=== PATIENT | male | born 1935 | race Caucasian/White ===

== ENCOUNTER 2024-04-27 06:05 | Inpatient (IN) | payer MEDICARE, OTHER, SELFPAY ==
[2024-04-11 13:57] VITALS: BMI 28.5
[2024-04-11 14:54] LABS: ALT (SGPT) 17 U/L (0-50); AST (SGOT) 28 U/L (17-59); Albumin 4.1 g/dl (3.5-5.0); Alkaline Phosphatase 59 U/L (38-126); Blood Urea Nitrogen 11 mg/dl (9-20); Calcium 8.9 mg/dl (8.4-10.2); Carbon Dioxide 23 mmol/L (22-30); Chloride 99 mmol/L (98-107); Estimated Creatinine Clearance 57 ml/min; Glucose 91 mg/dl (70-99); Potassium 3.9 mmol/L (3.5-5.1); Sodium 132 mmol/L (135-145); Total Bilirubin 0.9 mg/dl (0.2-1.3); Total Protein 7.2 g/dl (6.3-8.2); eGFR > 60.00
[2024-04-11 15:08] LABS: Hematocrit 26.8 % (39.0-52.0); Hemoglobin 9.3 g/dL (13.0-18.0); Mean Corp Hgb Conc. 34.7 g/dL (33.0-37.0); Mean Corpuscular Hgb 37.1 pg (27.0-31.0); Mean Corpuscular Volume 106.8 fL (80.0-94.0); Mean Platelet Volume 9.3 fL (7.4-10.4); Platelet Count 229 10^3/uL (130-400); Red Blood Cell Count 2.51 10^6/uL (4.70-6.10); Red Cell Dist. Width 13.9 % (11.5-14.5); White Blood Cell Count 7.4 10^3/uL (4.8-10.8)
[2024-04-11 15:29] LABS: Glycohemoglobin (HgbA1c) 5.3 % (4.0-5.6)
[2024-04-27] VITALS (13 sets, daily range): BP systolic 118–159; BP diastolic 53–89; PULSE 89; O2SAT 100; BMI 28.5
[2024-04-27] MEDS: TYLENOL 650 MG PO ×4 (06:37→20:52)
[2024-04-27] MEDS: NORMOSOL-R/PLASMALYTE-A 1000 IV ×2 (06:37→09:44)
[2024-04-27] MEDS: CELEBREX 200 MG PO (06:37)
--- NOTE | 2024-04-27 07:42 | W.PN.UPDATE ---
Update Note
Progress Note Update
AUDRA-Cpap
TAVR-decrease IVF rate
CAD-Brilinta POD#3-5
Macrocytic Anemia-check B12,folate
--- NOTE | 2024-04-27 10:15 | PTCARENOTE ---
Pt received from the PACU via bed. Transport was w/o incident. Pt is Awake, Drowsy and easily arousable. Pt denies pain or nausea at this time. Pt's VSS, Pt is afebrile. Pulse ox is 100% on 2Lvia nc., Resp. easy. Left Hip with PrimaSeal dressing
C/D/I, no drainage noted. Ice pack applied as ordered. Pt is Able to wiggle toes of left foot and reports full sensation foot to thigh. Pulses to left leg/foot are strong. Pt instructed on Plan of care. Pt verbalized understanding of instructions,
call [facility] is within reach.
[2024-04-27] MEDS: SYNTHROID PO (12:45)
[2024-04-27 14:10] LABS: Folate 10.4 ng/ml (2.76-20); Vitamin B12 378 pg/ml (239-931)
[2024-04-27 14:55] LABS: Iron 85 ug/dl (49-181)
[2024-04-27 15:04] LABS: Percent Saturation 33 % (20-50); Total Iron Binding Capacity 253 ug/dl (261-462)
--- NOTE | 2024-04-27 15:48 | W.DS.TRANS ---
DC Summary - [employer]
-
Discharge Instructions:
Discharge Diagnosis/Procedures L GRIFFIN Wild 04/27/24
Diet As tolerated
Activity With Walker
Driving Restrictions No driving
Bathing Restrictions OK to Shower
Other Services PT,VN,OT
Instructions:
Stand-Alone Forms: Total Hip/Knee Replacement D/C
Changes to Home Medications: Yes
Discharge Medications:
DC Medications w/original date entered in [employer]
ezetimibe 10 mg-simvastatin 40 mg tablet (Vytorin) 1 tab PO HS 04/15/24
levothyroxine 50 mcg tablet (Synthroid) 50 mcg PO DAILY 04/15/24
losartan 50 mg tablet (Cozaar) 50 mg PO DAILY 04/15/24
mupirocin 2 % ointment topical kit 1 applic topical BID 04/15/24
ticagrelor 60 mg tablet (Brilinta) 60 mg PO BID 04/15/24
acetaminophen 325 mg capsule (Tylenol) 650 mg (2 x 325 mg) PO QID #2 caps 04/27/24
aspirin 81 mg capsule 81 mg PO BID Blood clot prevention/tx #0 caps 04/27/24
dexamethasone 4 mg tablet 4 mg PO BID inflammation #6 tabs 04/27/24
docusate sodium 100 mg capsule (Colace) 100 mg PO BID stool softner #1 cap 04/27/24
famotidine 20 mg tablet 20 mg PO HS GI prophylaxis #1 tab 04/27/24
magnesium hydroxide 400 mg/5 mL oral suspension (Milk of Magnesia) 30 ml PO HS PRN Constipation #1 mL 04/27/24
ondansetron 4 mg disintegrating tablet 4 mg PO Q6H PRN n/v #20 tabs 04/27/24
oxycodone 5 mg tablet 5 mg PO Q6H PRN moderate-severe pain #30 tabs 04/27/24
sennosides 8.6 mg tablet (Senokot) 17.2 mg (2 x 8.6 mg) PO BID laxative #2 tabs 04/27/24
Home Medication Changes
ticagrelor 60 mg tablet (Brilinta) 60 mg PO BID 04/15/24�
aspirin 81 mg capsule 81 mg PO BID Blood clot prevention/tx #0 caps 04/27/24�
dexamethasone 4 mg tablet 4 mg PO BID inflammation #6 tabs 04/27/24�
famotidine 20 mg tablet 20 mg PO HS GI prophylaxis #1 tab 04/27/24�
ondansetron 4 mg disintegrating tablet 4 mg PO Q6H PRN n/v #20 tabs 04/27/24�
oxycodone 5 mg tablet 5 mg PO Q6H PRN moderate-severe pain #30 tabs 04/27/24�
Pending Results: No
[2024-04-27] MEDS: ANCEF 5 IV (16:24)
[2024-04-27] MEDS: ROXICODONE 5 MG PO (16:26)
[2024-04-27] MEDS: ASPIRIN 325 MG PO (18:32)
[2024-04-27] MEDS: BACTROBAN 2% OINTMENT 1 APPLIC NASAL (20:55)
[2024-04-27] MEDS: DECADRON 4 MG PO (20:55)
[2024-04-27] MEDS: COLACE 100 MG PO (20:55)
[2024-04-27] MEDS: SENOKOT 17.2 MG PO (20:55)
[2024-04-27] MEDS: TORADOL 15 MG IV (20:58)
[2024-04-27] MEDS: LIPITOR 20 MG PO (21:35)
[2024-04-27] MEDS: NEURONTIN 200 MG PO (21:35)
[2024-04-27] MEDS: ZETIA 10 MG PO (21:35)
[2024-04-28] MEDS: TYLENOL 650 MG PO ×4 (00:43→12:04)
[2024-04-28] MEDS: ANCEF 5 IV (00:44)
[2024-04-28 02:10] VITALS: PULSE 86
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
[2024-04-28 03:05] VITALS: BP 130/63
[2024-04-28] MEDS: SYNTHROID 50 MCG PO (05:12)
[2024-04-28] MEDS: TUMS 2 TABLET PO (05:12)
[2024-04-28 07:34] VITALS: BP 140/83
[2024-04-28] MEDS: SENOKOT 17.2 MG PO (08:37)
[2024-04-28] MEDS: DECADRON 4 MG PO (08:37)
[2024-04-28] MEDS: TORADOL 15 MG IV (08:37)
[2024-04-28] MEDS: CELEBREX 200 MG PO (08:37)
[2024-04-28] MEDS: BACTROBAN 2% OINTMENT 1 APPLIC NASAL (08:38)
[2024-04-28] MEDS: ASPIRIN 325 MG PO (08:38)
[2024-04-28] MEDS: COLACE 100 MG PO (08:38)
--- NOTE | 2024-04-28 10:30 | CM ---
CM following re: discharge planing.
Reviewed pt's chart, met with pt. Pt's spouse and daughter at bedside.
Pt is an 88 year old male, admitted with primary dx of POD#1 s/p Left total hip arthroplasty.
Pt reports he lives with spouse 1SH, no steps to enter, has 2 supportive children. Pt reports he ambulates with a walker and a cane, is active with outpatient therapy provided by therapist Agustín Chaves [phone]. Pt expressed his desire to return
back home with resumptions of outpatient therapy with Agustín Chaves. Pt stated he is aware he will be discharged home and pt expressed his agreement. IMM reviewed, placed on chart, pt has a copy.
PCP: Nando Villarreal
Pharmacy: [facility]
Please provide a script for outpatient PT/OT.
D/C plan: return back home with outpatient therapy with therapist Agustín Chaves. Spouse to transport.
No other discharge needs identified.
[2024-04-28 10:58] VITALS: BP 130/52
[2024-04-28 11:03] VITALS: BP 130/52; PULSE 74
[2024-04-28 12:09] VITALS: BP 130/57; PULSE 78; O2SAT 97
--- NOTE | 2024-04-28 13:27 | W.PN.ORTHO ---
Today's Communication / Plan
-
d/c
Assessment
.
Distal Motor Intact: Yes
Dressing:
Clean, dry and intact.
Assessment:
AUDRA-Cpap-O2 sats stable on RA
TAVR-decrease IVF rate-volume status stable
CAD-Brilinta POD#5--stents >1year
Macrocytic Anemia-B12,folate in range
Plan
.
Surgery / Date: Paulina Wild 04/27/24
DVT Prophylaxis: Aspirin
Activity:
Out of bed.
PT/OT
Discharge Plan: Home w/ VN
Subjective
.
.:
Patient resting comfortably.
Vital Signs and Labs
.
Vital Signs and Labs:
Lab Results
04/11/24 12:48
04/11/24 12:48
Temp Pulse Resp BP Pulse Ox
97.4 F 83 16 130/52 99
04/28/24 10:58 04/28/24 10:58 04/28/24 10:58 04/28/24 10:58 04/28/24 10:58
Non-invasive Hgb result: 9.5
Physical Exam
-
HEENT: No pallor, cyanosis, or jaundice. Throat clear.
NECK: Supple. No JVD.
RESPIRATORY: Lungs clear to auscultation.
CVS: S1, S2 normal. RRR.� No murmur, rub or gallop.
ABDOMEN: Soft, non-tender. No distension. BS+/normal.
EXTREMITIES: strength equal, no calf pain with palpation
DISTRICT RECRUITER: AOx3. No focal deficits. slat basket maker machine grossly intact
== END 2024-04-28 14:13 | disposition home health service (06) | DRG 470 ==
LOC: 2 SOUTH 06:05
PROVIDERS: Physician Assistant Medical; ADMITTING PHYSICIAN Orthopaedic Surgery; FAMILY PHYSICIAN Student in an Organized Health Care Education/Training Program
PROC: 0SRB03A Replacement of Left Hip Joint with Ceramic Synthetic Substitute, Uncemented, Open Approach (ICD-10-PCS; 2024-04-27)
DX: M16.12 Unilateral primary osteoarthritis, left hip (principal); G47.33 Obstructive sleep apnea (adult) (pediatric); I25.10 Atherosclerotic heart disease of native coronary artery without angina pectoris; D53.9 Nutritional anemia, unspecified; E78.5 Hyperlipidemia, unspecified; I10 Essential (primary) hypertension; Z96.642 Presence of left artificial hip joint; Z79.82 Long term (current) use of aspirin; Z79.890 Hormone replacement therapy; Z95.2 Presence of prosthetic heart valve; Z95.5 Presence of coronary angioplasty implant and graft
CPT/HCPCS: 36415; 73502; 80053; 82607; 82728; 82746; 83036; 83540; 83550; 85027; 86850; 86900; 86901; 87070; 97110; 97116; 97163; 97166; 97530; 97535; C1713; C1776

== ENCOUNTER 2024-05-14 23:57 | Inpatient (IN) | payer MEDICARE, SELFPAY ==
[2024-05-14] VITALS (7 sets, daily range): BP systolic 111–144; BP diastolic 44–75
[2024-05-14] MEDS: TYLENOL 650 MG PO (20:37)
--- NOTE | 2024-05-14 21:21 | ED.GENMED ---
History of Present Illness
General
Chief Complaint: Musculo-Skeletal Complaint
Source: patient, spouse and family
Exam Limitations: none
Time Seen by Provider: 05/14/24 19:51
Nursing documentation reviewed up to this point in time: agreed with
History of Present Illness
History of Present Illness:
88-year-old male presents emergency department due to left leg pain. He was sitting in the recliner and elevated his lower legs and the pain began radiating down his left leg from his hip. Complaint of left knee pain. notes swelling and
redness in his left leg.
Past History
Past History
ED Past Medical History: HTN, Hypercholesterolemia and Other (Sleep apnea)
ED Past Surgical History: Orthopedic (Left hip replacement call April 2024)
Social History
Tobacco: Non-smoker
Alcohol: None
Drug: None
Personal:
Living: with family
Review of Systems
Review of Systems
Allergies reviewed?: Yes
All Other Systems: Not applicable
Constitutional: Reports no symptoms
EENT: Reports no symptoms
Respiratory: Reports no symptoms
Cardiac: Reports no symptoms
ABD/GI: Reports no symptoms
: Reports no symptoms
Musculoskeletal: Reports joint pain and muscle pain
Skin: Reports no symptoms
Neurological: Reports no symptoms
Endocrine: Reports no symptoms
Hematologic/Lymphatic: Reports no symptoms
Psychiatric: Reports no symptoms
Phy Exam
Physical Exam
Physical Exam:
Physical Exam
General: no apparent distress, not acutely ill
Neck: supple. no meningeal signs. normal posterior pharynx
Heart: s1/s2 regular rate and rhythm, no murmur. equal radial
pulses.
HEENT: Pupils equal round reactive to light, EOMI
Lungs: no acute respiratory distress. clear bilaterally
Abdomen: normal bowel sounds. not tender. no CVAT
Neuro: alert and oriented. no focal neurological deficits cranial nerves II through XII intact
Skin: Healing left lateral hip incision, erythema and edema left lower leg
Psychiatric: well kept. interactive and cooperative
Extremities: Edema left lower leg. No calf tenderness. negative homans. good distal pulses
Course
Orders/Labs/Results
Orders:
Orders
05/14/24 19:26
Hip, Left 2-3 Views [CR Hip - LT w/wo Pel 2-3 Vw*] Urgent
Comment:
Reason For Exam: pain s/p GRIFFIN
Include a pelvis x-ray?: Yes
05/14/24 20:35
Acetaminophen [Tylenol] 650 mg PO NOW STA
05/14/24 21:19
IV Insert/Care/Rem.- Treatment PRN
Legs, left US [US Periph Venous LOWER Ext LT] Urgent
Comment:
Reason For Exam: left leg swelling
05/14/24 22:08
CRP [C-Reactive Protein] Urgent
Complete Blood Count/With Diff Urgent
Comprehensive Metabolic Panel Urgent
ESR [Erythrocyte Sed Rate] Urgent
05/14/24 22:24
Morphine Sulfate 2 mg IV NOW STA
Ondansetron Injectable [Zofran] 4 mg IV NOW STA
05/14/24 23:09
CeFAZolin 2 GRAM [Ancef] 2 grams in 10 ml IV NOW
Abnormal Lab Results
05/14/24
22:08
RBC 1.94 L 10^6/uL
(4.70-6.10)
Hgb 7.3 L g/dL
(13.0-18.0)
Hct 20.8 L* %
(39.0-52.0)
MCV 107.2 H fL
(80.0-94.0)
MCH 37.6 H pg
(27.0-31.0)
RDW 14.6 H %
(11.5-14.5)
Abs Immat Gran (auto) 0.1 H 10^3/uL
(0-0.05)
Absolute Neuts (auto) 7.4 H 10^3/uL
(1.4-6.5)
Absolute Monos (auto) 1.0 H 10^3/uL
(0.1-0.6)
Immature Gran % 0.6 H %
(0-0.5)
Lymphocytes % 18.0 L %
(20.5-51.1)
Monocytes % 9.5 H %
(1.7-9.3)
ESR 96 H mm/hour
(0-20)
Sodium 129 L mmol/L
(135-145)
Chloride 95 L mmol/L
(98-107)
Glucose 105 H mg/dl
(70-99)
C-Reactive Protein 21.50 H mg/L
(0.0-10.00)
Total Protein 6.2 L g/dl
(6.3-8.2)
Albumin 3.4 L g/dl
(3.5-5.0)
05/14/24 22:08
05/14/24 22:08
Vital Signs
Initial and Last Documented VS:
Initial Vital Signs
BP
140/71
05/14/24 19:10
Last Documented Vital Signs
Temp Pulse Resp BP Pulse Ox
97.7 F 105 18 120/50 94
05/14/24 19:12 05/14/24 19:12 05/14/24 19:12 05/14/24 22:49 05/14/24 22:49
MDM/Problems Addressed
Differential Diagnosis Includes:
Cellulitis, DVT
MDM/Problems Addressed:
88-year-old male with cellulitis, left lower leg, left leg pain, acute on chronic anemia.,
Chronic conditions affecting care: HTN and Cardiomyopathy
Acute Exacerbation and/or Progression of Chronic Illness: HTN and Cardiomyopathy
*Radiology
Radiology exam reviewed: radiology read reviewed (Ultrasound left lower leg no DVT, left hip x-ray no acute findings)
*Pulse Oximetry
Patient hypoxic: no
*Critical Care Note
Total Time (30-74mins, 75-104mins- exclusive of procedures): Not Applicable
Data Reviewed
Review of Other/Old Records Reveals: Operative Reports (Left hip replacement by Dr. Wild 04/27/2024)
Source: records
Patient Management
Social determinants of health affecting care: Living situation and Strong social support
Discussion with other providers: Hospitalist
Escalation/DeEscalation of care consider admission/obs:
Admit indicated
ED Attending Note
-
Portions of this chart may have been created with voice recognition software.� Occasional wrong word or��sound alike� substitutions may have occurred due to the inherent limitations of voice recognition software.
Discharge Plan
Departure
Patient Disposition: Admit
Date of Disposition: 05/14/24
Time of Disposition: 23:10
Admit to: Med/Surg
Presentation/result/management discussed w/ accepting MD/DO: Hospitalist
Patient with high blood pressure during this ER visit?: Yes
Condition: Good
Discharge Problem:
Cellulitis of left leg, Anemia
Prescriptions:
No Action
losartan [Cozaar] 50 mg Tablet
50 mg PO DAILY
levothyroxine [Synthroid] 50 mcg Tablet
50 mcg PO DAILY
ezetimibe-simvastatin [Vytorin 10-40] 10-40 mg Tablet
1 tab PO HS
Brilinta 60 mg Tablet
60 mg PO BID
mupirocin 2 % Ointment Kit
1 applic TOPICAL BID
Rx Instructions:
BID for 3 days, last dose this am
docusate sodium [Colace] 100 mg capsule
100 mg PO BID Qty: 1 0RF
famotidine 20 mg tablet
20 mg PO HS Qty: 1 0RF
Rx Instructions:
post-op--OTC
dexamethasone 4 mg tablet
4 mg PO BID Qty: 6 0RF
Rx Instructions:
take with food
post-op use only
magnesium hydroxide [Milk of Magnesia] 400 mg/5 mL suspension
30 ml PO HS PRN (Reason: Constipation) Qty: 1 0RF
ondansetron [ondansetron] 4 mg tablet,disintegrating
4 mg PO Q6H PRN (Reason: n/v) Qty: 20 0RF
Rx Instructions:
take 1/2h b/f pain med if recurrent nausea
allow to dissolve in mouth w/o water
oxycodone 5 mg tablet
5 mg PO Q6H PRN (Reason: moderate-severe pain) Qty: 30 0RF
Rx Instructions:
Ongoing therapy
sennosides [Senokot] 8.6 mg tablet
17.2 mg PO BID Qty: 2 0RF
acetaminophen [Tylenol] 325 mg capsule
650 mg PO QID Qty: 2 0RF
aspirin 81 mg Capsule
81 mg PO BID Qty: 0 0RF
Referrals:
Nando Villarreal III, MD [Family Provider] -
Interventions
Interventions:
*Risk Screen - Suicide Last Done: 05/14/24 19:19
*General Assessment Last Done: 05/14/24 19:19
*Neglect/Abuse Screening Last Done: 05/14/24 19:19
ED- Fall Risk Assessment Last Done: 05/14/24 20:27
*ED COVID-19 Vaccine History Last Done: 05/14/24 20:27
ED-Musculoskeletal Assessment Last Done: 05/14/24 20:27
Discharge Date and Time
Print Language: ROMANIAN
[2024-05-14 22:27] LABS: % Basophils 0.2 % (0-2); % Eosinophils 0.2 % (0-6); % Immature Granulocytes 0.6 % (0-0.5); % Monocytes 9.5 % (1.7-9.3); % Neutrophils 71.5 % (42.2-75.2); Absolute Immature Granulocytes 0.1 10^3/uL (0-0.05); Absolute Lymphocytes 1.9 10^3/uL (1.2-3.4); Absolute Neutrophils 7.4 10^3/uL (1.4-6.5); Hematocrit 20.8 % (39.0-52.0); Hemoglobin 7.3 g/dL (13.0-18.0); Mean Corp Hgb Conc. 35.1 g/dL (33.0-37.0); Mean Corpuscular Hgb 37.6 pg (27.0-31.0); Mean Corpuscular Volume 107.2 fL (80.0-94.0); Mean Platelet Volume 9.8 fL (7.4-10.4); Nucleated Red Blood Cells % 0.4 % (-); Platelet Count 287 10^3/uL (130-400); Red Blood Cell Count 1.94 10^6/uL (4.70-6.10); Red Cell Dist. Width 14.6 % (11.5-14.5); White Blood Cell Count 10.3 10^3/uL (4.8-10.8)
[2024-05-14 22:35] LABS: ALT (SGPT) 21 U/L (0-50); AST (SGOT) 25 U/L (17-59); Albumin 3.4 g/dl (3.5-5.0); Alkaline Phosphatase 95 U/L (38-126); Blood Urea Nitrogen 12 mg/dl (9-20); Calcium 8.6 mg/dl (8.4-10.2); Carbon Dioxide 25 mmol/L (22-30); Chloride 95 mmol/L (98-107); Glucose 105 mg/dl (70-99); Potassium 4.4 mmol/L (3.5-5.1); Sodium 129 mmol/L (135-145); Total Bilirubin 0.8 mg/dl (0.2-1.3); Total Protein 6.2 g/dl (6.3-8.2); eGFR > 60.00
[2024-05-14 22:37] LABS: Erythrocyte Sed Rate 96 mm/hour (0-20)
[2024-05-14] MEDS: ZOFRAN 4 MG IV (22:39)
[2024-05-14] MEDS: MORPHINE SULFATE 2 MG IV (22:39)
[2024-05-14] MEDS: ANCEF 10 IV (23:17)
--- NOTE | 2024-05-14 23:45 | HPS.HSE ---
Family Physician
-
Family Physician: Nando Villarreal III, MD
Chief Complaint
-
L Knee / Hip Pain
History of Present Illness
Patient is an 88y M with PMH significant for ASCVD, hypertension and AV replacement who presents to ED complaining of left knee and hip pain that started this evening. Patient is s/p recent L GRIFFIN on 04/27/24. He has been receiving home PT and has
been doing well since his surgery with no recent issues or complaints. This evening after dinner, patient went to sit in his recliner. He elevated the foot of the recliner and developed rather sudden onset of pain in the back of the L knee with
radiation to the L hip and groin. He was unable to to get comfortable with ice packs or position changes. His pain was least bothersome with standing / weight bearing. With persistent pain at home patient presented to the ED for further
evaluation.
He denies any recent illness. He denies any chest pain, dyspnea, N/V/D, fevers / chills, etc.
Medical History
Past Medical History
Past Medical History: Reports Other
Additional Past Medical History:
ASCVD
Hypertension
Aortic Stenosis
Hypothyroidism
Aortic Dissection
AUDRA
Osteoarthritis
Chronic Macrocytic Anemia
Hyponatremia
Past Surgical History: Reports Other
Additional Past Surgical History:
L GRIFFIN (04/27/24)
CABG x 3
Aorta Repair
AV Replacement
Bilateral TKA
Right GRIFFIN
PTCA with Stents (x 2)
Social History
Tobacco: Non-smoker
Alcohol: None
Drug: None
Family History
Family History: Not pertinent
Allergies / Home Medications
Allergies reflects when Allergies were last updated in [facility].
Home Medications with original date entered in [facility]
Allergy/Medication List:
Allergies
Allergy/AdvReac Type Severity Reaction Status Date / Time
No Known Allergies Allergy Verified 05/14/24 19:10
Home Medications
ezetimibe 10 mg-simvastatin 40 mg tablet (Vytorin) 1 tab PO HS 04/15/24
levothyroxine 50 mcg tablet (Synthroid) 50 mcg PO DAILY 04/15/24
losartan 50 mg tablet (Cozaar) 50 mg PO DAILY 04/15/24
ticagrelor 60 mg tablet (Brilinta) 60 mg PO BID 04/15/24
aspirin 81 mg capsule 81 mg PO BID Blood clot prevention/tx #0 caps 04/27/24
docusate sodium 100 mg capsule (Colace) 100 mg PO BID stool softner #1 cap 04/27/24
famotidine 20 mg tablet 20 mg PO HS GI prophylaxis #1 tab 04/27/24
magnesium hydroxide 400 mg/5 mL oral suspension (Milk of Magnesia) 30 ml PO HS PRN Constipation #1 mL 04/27/24
ondansetron 4 mg disintegrating tablet 4 mg PO Q6H PRN n/v #20 tabs 04/27/24
oxycodone 5 mg tablet 5 mg PO Q6H PRN moderate-severe pain #30 tabs 04/27/24
sennosides 8.6 mg tablet (Senokot) 17.2 mg (2 x 8.6 mg) PO BID laxative #2 tabs 04/27/24
Review of Systems
-
History Source: Patient
A 12 point ROS was completed and negative except as noted: Yes
Constitutional: Denies Fever, Fatigue or Chills
EENT: Denies Sore Throat
Respiratory: Denies Cough or Trouble Breathing
Cardiac: Denies Chest Pain or Palpitations
Abdomen/GI: Denies Abdominal Pain, Nausea, Vomiting, Diarrhea, Constipated, Bloody Stools or Black Stools
: Denies Dysuria or Frequency
Musculoskeletal: Reports Joint Pain and Edema
Neurological: Denies Dizzy or Headache
Psych: Denies Depression or Anxiety
Physical Exam
Vital Signs
Vital Signs
Temp Pulse Resp BP Pulse Ox
97.7 F 105 18 120/50 94
05/14/24 19:12 05/14/24 19:12 05/14/24 19:12 05/14/24 22:49 05/14/24 22:49
Physical Exam
General: Other (88y M in no acute distress.)
HEENT: Moist mucous membranes and PERRLA
Respiratory: Clear; No Wheezes, Rales or Rhonchi
Cardiac: S1/S2, Regular Rhythm and Murmur (II/ ALEX)
GI: Soft, Non Tender, Non Distended and Normal Bowel Sounds
Musculoskeletal: No Clubbing, No Cyanosis and Other (1-2+ pitting edema of the LLE. Ecchymosis around L hip incision / buttocks. Incision intact without bleeding / drainage. No fluctuance or surrounding erythema.)
Skin: Other (Mild erythema and increased warmth of the L lower leg (knee to ankle) with out skin breakdown / ulceration / etc.)
Neuro: AO x 3
Laboratory Results
-
05/14/24 22:08
05/14/24 22:08
Laboratory Results
Total Bilirubin 0.8 mg/dl (0.2-1.3) 05/14/24 22:08
AST 25 U/L (17-59) 05/14/24 22:08
ALT 21 U/L (0-50) 05/14/24 22:08
Alkaline Phosphatase 95 U/L (38-126) 05/14/24 22:08
Impression/Plan
-
A/P: Patient is an 88y M with PMH significant for ASCVD, HTN and recent L GRIFFIN who presents to ED complaining of L knee and hip pain.
Left Knee / Hip Pain
s/p L GRIFFIN 04/27/24
- Admit for further evaluation and treatment.
- Etiology of abrupt pain syndrome is unclear at present.
- X-rays in the ED show no abnormality with recent L GRIFFIN prosthesis.
- No injury, fall, trauma, etc.
- Check knee x-rays as well.
- Pain control, PT / OT evaluations.
- Ortho evaluation for additional recommendations.
LLE Cellulitis
- Mild erythema, increased warmth, etc in L lower leg.
- IV Ancef for now and follow for clinical improvement.
- ? correlation between lower leg cellulitis and knee / hip pain syndrome?
Acute Blood Loss Anemia
Chronic Macrocytic Anemia
- Hgb today is 7.3 down from 9.3 pre-op.
- Suspect this reflects blood loss related to surgery.
- No specific symptoms, hypoxemia, etc.
- Follow H&H for any changes.
- Iron studies, B12, folate, etc done during surgical admission were unremarkable.
Hyponatremia
- Acute on Chronic / mildly decreased from prior.
- Fluid restriction for now and follow for improvement.
ASCVD
Aortic Stenosis s/p AVR
- Stable. No chest pain, dyspnea, etc.
- Continue current CV med regimen including DAPT, etc.
Hypothyroidism
- Stable. Continue current T4 supplementation.
Benign Hypertension
- Stable. Continue losartan with holding parameters.
DVT Prophylaxis: SCDs
Code Status: Full
[2024-05-15] VITALS (8 sets, daily range): BP systolic 114–137; BP diastolic 48–74; PULSE 79–84; O2SAT 96; BMI 27.6
[2024-05-15] MEDS: SYNTHROID 50 MCG PO (05:23)
[2024-05-15 09:42] LABS: Hematocrit 20.2 % (39.0-52.0); Hemoglobin 6.9 g/dL (13.0-18.0); Mean Corp Hgb Conc. 34.2 g/dL (33.0-37.0); Mean Corpuscular Hgb 36.3 pg (27.0-31.0); Mean Corpuscular Volume 106.3 fL (80.0-94.0); Mean Platelet Volume 9.8 fL (7.4-10.4); Platelet Count 249 10^3/uL (130-400); White Blood Cell Count 5.5 10^3/uL (4.8-10.8)
--- NOTE | 2024-05-15 09:51 | W.PN.HOSP.TC ---
Addendum entered and electronically signed by Nilay Brooke MD 05/15/24 17:01:
Addendum
Spoke with daughter Sylvia at [phone]
She was concerned about stopping AB for presumed cellulitis. Upon my exam : with lack of systemic manifestations/ leukocytosis/ redness/ tenderness of extremity, I do not think pt has cellulitis. I will restart his Ancef and do blood culture (
blood culture was not done upon admission). Can stop Abx if blood culture is negative.
Also I think the swelling will go down with Alexsander wrap and elevation. Will place the order.
End
Original Note:
Today's Communication/Plan
-
IV Iron
Tylenol PRN
f/w ortho recommendations
Assessment / Plan
Assessment / Plan
Physical Exam
General: Other (88y M in no acute distress.)
HEENT: Moist mucous membranes and PERRLA
Respiratory: Clear; No Wheezes, Rales or Rhonchi
Cardiac: S1/S2, Regular Rhythm and Murmur (II/ ALEX)
GI: Soft, Non Tender, Non Distended and Normal Bowel Sounds
Musculoskeletal: No Clubbing, No Cyanosis and Other (1-2+ pitting edema of the LLE. Ecchymosis around L hip incision / buttocks. Incision intact without bleeding / drainage. No fluctuance or surrounding erythema.)
Skin: edema note din LLE
Neuro: AO x 3, he followed commands
Psych: calm
Patient is an 88y M with PMH significant for ASCVD, HTN and recent L GRIFFIN who presents to ED complaining of L knee and hip pain.
Left Knee
He described it as pain behind left knee, he does not have pain this morning
Swelling in whole left lower extremity but expected post his replacement. Continue to elevate the leg, can do compression dressing.
US no DVT
- Ortho evaluation for additional recommendations.
# Status post Left total hip arthroplasty by Dr Wild on 04/27/24.
# Acute blood loss anemia
Post hip replacement
Chronic Macrocytic Anemia
Will give IV Iron. Hemodynamically stable.
# Presumed LLE Cellulitis. No leukocytosis. No fevers
- On admission, Mild erythema noted. I do not see signs of cellulitis. Will hold further ABx.
Hyponatremia
- Acute on Chronic / mildly decreased from prior.
- Fluid restriction for now and follow for improvement.
ASCVD
Aortic Stenosis s/p AVR
- Stable. No chest pain, dyspnea, etc.
- Continue current CV med regimen including DAPT, etc.
Hypothyroidism
- Stable. Continue current T4 supplementation.
Benign Hypertension
- Stable. Continue losartan with holding parameters.
DVT Prophylaxis: SCDs
Code Status: Full
Total time spent to see the patient, examine the patient on the floor, review data and lab results, discuss treatment plan with patient, nursing staff around 55 minutes
Anticipated Discharge: 24 - 48 hours
Subjective/Interval History
-
Date of Service: May 15, 2024
He denies pain in left knee this morning
Objective Data
-
Labs:
Laboratory Results
05/14/24 05/15/24
22:08 07:46
WBC 10.3 5.5
Hgb 7.3 L 6.9 L*
Hct 20.8 L* 20.2 L*
Plt Count 287 249
Sodium 129 L Pending
Potassium 4.4 Pending
Chloride 95 L Pending
Carbon Dioxide 25 Pending
BUN 12 Pending
Creatinine 0.7 Pending
Glucose 105 H Pending
Calcium 8.6 Pending
Total Bilirubin 0.8
AST 25
ALT 21
Alkaline Phosphatase 95
Vital Signs:
Vital Signs
Temp Pulse Resp BP Pulse Ox
97.5 F 71 16 114/54 95
05/15/24 07:30 05/15/24 07:30 05/15/24 07:30 05/15/24 07:30 05/15/24 07:30
[2024-05-15] MEDS: COZAAR 50 MG PO (10:09)
[2024-05-15] MEDS: ASPIR LOW (ENTERIC COATED) 81 MG PO (10:09)
[2024-05-15] MEDS: BRILINTA 60 MG PO ×2 (10:12→20:45)
[2024-05-15] MEDS: ANCEF 10 IV (10:13)
[2024-05-15 10:24] LABS: Blood Urea Nitrogen 9 mg/dl (9-20); Calcium 8.5 mg/dl (8.4-10.2); Carbon Dioxide 20 mmol/L (22-30); Chloride 99 mmol/L (98-107); Estimated Creatinine Clearance 62 ml/min; Glucose 96 mg/dl (70-99); Potassium 4.4 mmol/L (3.5-5.1); Sodium 131 mmol/L (135-145); eGFR > 60.00
--- NOTE | 2024-05-15 11:12 | W.PN.UPDATE ---
Update Note
Progress Note Update
88-year-old male who is status post left total hip arthroplasty with Dr. Wild for April 2024 admitted due to sudden discomfort in his left lower extremity when going to a seated position. He reports he was doing well postoperatively
otherwise. He does report remote left total knee arthroplasty more than 10 years ago with another surgical group. Denies any chronic pain about his left knee
He denies any traumatic injury or fall. Denies any fevers or chills
Focused examination of the left lower extremity shows well-approximated surgical incision with dry eschar overlying the lateral hip. He is nontender in this area. No tenderness with hip logroll or gentle internal/external rotation. Examination of
the left knee shows localized discomfort to the superior lateral aspect with mild tenderness about the distal IT band. No significant effusion. Demonstrates intact complete extension of the left knee in flexion towards 95 degrees without
significant discomfort. Stable to varus and valgus stress testing. There is peripheral edema with redness of his skin
Imaging: X-rays taken of the left hip were compared to immediate postoperative films show no significant interval changes, no evidence of acute osseous abnormalities or hardware complication
X-rays taken of the left knee show status post left total knee arthroplasty with patellar resurfacing
Most recent blood work shows downtrending hemoglobin down to 6.9
Inflammatory marker of CRP at 21
88-year-old male admitted postoperative recent left total hip arthroplasty with sudden onset of pain in the lateral aspect of his left knee when going from a standing to a seated position without traumatic injury with unremarkable imaging and
minimal findings on clinical examination.
Clinical impression at this time is most likely soft tissue potentially about the distal IT band; atypical for injury about the left knee without traumatic injury.
Inflammatory marker of CRP at 21 with possible mild effusion however clinical examination of the left knee is benign
Recommend trial of physical therapy of ambulation with adhering to posterior hip precautions. Will obtain a CT of the left knee to ensure no hardware or osseous complication however not chiefly suspected. With trial of physical therapy we will
track his clinical progression and if still admitted track his inflammatory markers 48-72 hours. If he has more definitive localized area of discomfort can consider further advanced imaging and pending response towards return to activity with
therapy.
[2024-05-15] MEDS: FERRLECIT 110 MG IV (14:47)
--- NOTE | 2024-05-15 16:24 | CM ---
met with patient and josiah saleem.patient lives with his in house with 2 fredo,his bed and bath is on the first level,he is I ambulating and i with his adl.he has never had a vn and has no hx of ip rehab
patient is current with [facility] pt 2x/week
PCP:[facility]: [facility] in [place]
PMH:sp sujit on 04/27/24,htn,aortic stenosis sp avr,chronic macrocytic anemia
patient is adm with left knee and hip pain-possible lle cellulitis,was on iv abx for few doses-now holding iv abx,on iv iron,following sodium level..Plan will dc with home pt 2x/week as prior [facility] adm.not able to fine this agency in [facility].they ar
in [facility] [phone].apparently ortho doctor has already written a script for additional pt.Plan home wiith home pt through [facility] agency.
[2024-05-15] MEDS: ANCEF 5 IV (17:42)
[2024-05-15] MEDS: LIPITOR 10 MG PO (21:37)
[2024-05-15] MEDS: ZETIA 10 MG PO (21:37)
[2024-05-16] MEDS: ANCEF 5 IV ×3 (02:21→18:23)
[2024-05-16] MEDS: SYNTHROID 50 MCG PO (06:09)
[2024-05-16 06:26] LABS: Blood Urea Nitrogen 11 mg/dl (9-20); Calcium 8.9 mg/dl (8.4-10.2); Carbon Dioxide 22 mmol/L (22-30); Chloride 99 mmol/L (98-107); Estimated Creatinine Clearance 62 ml/min; Glucose 98 mg/dl (70-99); Potassium 4.3 mmol/L (3.5-5.1); Sodium 133 mmol/L (135-145); eGFR > 60.00
[2024-05-16 06:28] LABS: Hematocrit 20.1 % (39.0-52.0); Hemoglobin 6.8 g/dL (13.0-18.0); Mean Corp Hgb Conc. 33.8 g/dL (33.0-37.0); Mean Corpuscular Hgb 35.8 pg (27.0-31.0); Mean Corpuscular Volume 105.8 fL (80.0-94.0); Mean Platelet Volume 9.5 fL (7.4-10.4); Platelet Count 259 10^3/uL (130-400); Red Cell Dist. Width 15.1 % (11.5-14.5); White Blood Cell Count 6.4 10^3/uL (4.8-10.8)
[2024-05-16 07:51] VITALS: BP 126/58
[2024-05-16] MEDS: ASPIR LOW (ENTERIC COATED) 81 MG PO (08:10)
[2024-05-16] MEDS: COZAAR 50 MG PO (08:10)
[2024-05-16] MEDS: BRILINTA 60 MG PO ×2 (08:10→20:57)
--- NOTE | 2024-05-16 09:31 | W.PN.UPDATE ---
Update Note
Progress Note Update
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 Hgb this morning at 6.8. Told they will be transfusing him. A little fatigued this morning. Will hold PT until after
transfusion. Exam of the left hip and left knee essentially benign other than some mild swelling of the left knee. Alexsander wrap compression in place LLE. CT of the LLE reveals left TKA to be without complication. Afeb this AM. WBC 6.4 this AM. ESR on
May 17 was 96. CRP 21.5 on May 17. Will continue to monitor while inpatient. Concern for left knee PJI at this time extremely low. Continue to be mindful of left hip THPs.
[2024-05-16 12:55] VITALS: BP 139/60
[2024-05-16 13:11] VITALS: BP 122/59
--- NOTE | 2024-05-16 14:12 | W.PN.HOSP.TC ---
Today's Communication/Plan
-
f/u anemia labs
transfuse 1 u prbc today, monitor cbc
f/u tsh
can cont cefazolin for now
Assessment / Plan
Assessment / Plan
Physical Exam
General: Other (88y M in no acute distress.)
HEENT: Moist mucous membranes and PERRLA
Respiratory: Clear; No Wheezes, Rales or Rhonchi
Cardiac: S1/S2, Regular Rhythm and Murmur (II/ ALEX)
GI: Soft, Non Tender, Non Distended and Normal Bowel Sounds
Musculoskeletal: No Clubbing, No Cyanosis and Other (1-2+ pitting edema of the LLE. Ecchymosis around L hip incision / buttocks. Incision intact without bleeding / drainage. No fluctuance or surrounding erythema.)
Skin: edema note din LLE
Neuro: AO x 3, he followed commands
Psych: calm
Patient is an 88y M with PMH significant for ASCVD, HTN and recent L GRIFFIN who presents to ED complaining of L knee and hip pain.
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
-stable, no issues and feels better
-no further interventions from ortho
# Acute blood loss anemia v chronic anemia
Post hip replacement
f/u iron labs, b12, folate
-dc iv iron as not iron def on last lab values
-monitor cbc
-stool is brown
-f/u tsh
-transfuse 1 u today
# Presumed LLE Cellulitis.
-appears to be improving if there was cellulitis
-will provide 5 days of abx total
Hyponatremia
- Acute on Chronic / mildly decreased from prior.
- Fluid restriction for now and follow for improvement.
ASCVD
Aortic Stenosis s/p AVR
- Stable. No chest pain, dyspnea, etc.
- Continue current CV med regimen including DAPT, etc.
Hypothyroidism
- Stable. Continue current T4 supplementation.
-f/u tsh
Benign Hypertension
- Stable. Continue losartan with holding parameters.
DVT Prophylaxis: ASA, brillinta -holding further dvt ppx with anemia
Code Status: Full
Anticipated Discharge: 24 - 48 hours
Subjective/Interval History
-
Date of Service: May 16, 2024
no acute events
Objective Data
-
Labs:
Laboratory Results
05/16/24
05:24
WBC 6.4
Hgb 6.8 L*
Hct 20.1 L*
Plt Count 259
Sodium 133 L
Potassium 4.3
Chloride 99
Carbon Dioxide 22
BUN 11
Creatinine 0.7
Glucose 98
Calcium 8.9
Vital Signs:
Vital Signs
Temp Pulse Resp BP Pulse Ox
97.5 F 81 16 122/59 98
05/16/24 13:11 05/16/24 13:11 05/16/24 13:11 05/16/24 13:11 05/16/24 07:51
I&O
05/15/24 05/16/24 05/17/24
06:59 06:59 06:59
Intake Total 0 / 0 0 / 0
Output Total 575 / 575
Balance 1505 / 1505 0 / 0
Review of Systems
-
History Source: Patient
All other systems: Not reviewed unless documented
Data Reviewed
-
CT Scan: Image personally visualized and interpreted and Report Reviewed by me
Labs: Labs Reviewed by me
[2024-05-16 14:44] LABS: Iron 135 ug/dl (49-181)
[2024-05-16 15:06] LABS: Percent Saturation 52 % (20-50); Total Iron Binding Capacity 259 ug/dl (261-462)
[2024-05-16 15:41] VITALS: BP 133/61
[2024-05-16 15:42] LABS: TSH Reflex To Free T4 3.04 uIU/ml (0.47-4.68)
[2024-05-16 15:45] VITALS: BP 133/61
--- NOTE | 2024-05-16 16:50 | CM ---
Spoke with pt and in room.
said he will resume out pt PT. She said it is [facility] [phone]. said she will resume at home.
[place] PT script [place].
Family will drive home.
PLAN Home with Out pt PT
[2024-05-16] MEDS: LIPITOR 10 MG PO (21:00)
[2024-05-16] MEDS: ZETIA 10 MG PO (21:00)
[2024-05-16 23:39] VITALS: BP 162/71
[2024-05-17] MEDS: ANCEF 5 IV ×3 (02:07→17:46)
[2024-05-17 02:17] VITALS: BP 106/63
[2024-05-17] MEDS: SYNTHROID 50 MCG PO (05:26)
[2024-05-17 06:01] LABS: Hematocrit 24.7 % (39.0-52.0); Hemoglobin 8.7 g/dL (13.0-18.0); Mean Corp Hgb Conc. 35.2 g/dL (33.0-37.0); Mean Corpuscular Hgb 36.7 pg (27.0-31.0); Mean Corpuscular Volume 104.2 fL (80.0-94.0); Mean Platelet Volume 9.5 fL (7.4-10.4); Platelet Count 261 10^3/uL (130-400); Red Blood Cell Count 2.37 10^6/uL (4.70-6.10); Red Cell Dist. Width 18.1 % (11.5-14.5); White Blood Cell Count 6.7 10^3/uL (4.8-10.8)
[2024-05-17 06:17] LABS: ALT (SGPT) 15 U/L (0-50); AST (SGOT) 22 U/L (17-59); Albumin 3.6 g/dl (3.5-5.0); Alkaline Phosphatase 95 U/L (38-126); Blood Urea Nitrogen 14 mg/dl (9-20); Calcium 8.7 mg/dl (8.4-10.2); Carbon Dioxide 23 mmol/L (22-30); Chloride 101 mmol/L (98-107); Estimated Creatinine Clearance 62 ml/min; Glucose 96 mg/dl (70-99); Potassium 4.3 mmol/L (3.5-5.1); Sodium 135 mmol/L (135-145); Total Protein 6.5 g/dl (6.3-8.2); eGFR > 60.00
[2024-05-17 07:33] VITALS: BP 137/56
--- NOTE | 2024-05-17 07:52 | W.PN.UPDATE ---
Update Note
Progress Note Update
Patient sitting up comfortably in chair. He reports that his hip and knee pain are improving. Hgb this morning at 8.7 s/p 1 unit PRBC yesterday. Exam of the left hip and left knee essentially benign other than some mild swelling of the left knee.
Alexsander wrap compression in place LLE. CT of the LLE reveals left TKA to be without complication. Ordered repeat ESR and CRP, will follow. Will continue to monitor while inpatient. Concern for left knee PJI at this time extremely low. Continue to be
mindful of left hip THPs. PT/OT as able.
[2024-05-17] MEDS: ASPIR LOW (ENTERIC COATED) 81 MG PO (08:15)
[2024-05-17] MEDS: BRILINTA 60 MG PO ×2 (08:15→21:04)
[2024-05-17] MEDS: COZAAR 50 MG PO (08:15)
[2024-05-17 09:41] LABS: Erythrocyte Sed Rate 84 mm/hour (0-20)
--- NOTE | 2024-05-17 13:57 | W.PN.HOSP.TC ---
Today's Communication/Plan
-
monitor cbc additional day
abx
Assessment / Plan
Assessment / Plan
Physical Exam
General: Other (88y M in no acute distress.)
HEENT: Moist mucous membranes and PERRLA
Respiratory: Clear; No Wheezes, Rales or Rhonchi
Cardiac: S1/S2, Regular Rhythm and Murmur (II/ ALEX)
GI: Soft, Non Tender, Non Distended and Normal Bowel Sounds
Musculoskeletal: No Clubbing, No Cyanosis and Other (1-2+ pitting edema of the LLE. Ecchymosis around L hip incision / buttocks. Incision intact without bleeding / drainage. No fluctuance or surrounding erythema.)
Skin: edema note din LLE
Neuro: AO x 3, he followed commands
Psych: calm
Patient is an 88y M with PMH significant for ASCVD, HTN and recent L GRIFFIN who presents to ED complaining of L knee and hip pain.
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
-stable, no issues and feels better
-no further interventions from ortho
# Acute blood loss anemia v chronic anemia
Post hip replacement
iron labs, b12, folate, tsh wnl
-dc iv iron as not iron def on last lab values
-monitor cbc
-stool is brown
-transfuse 1 u 05/16 - monitor additional day
# Presumed LLE Cellulitis.
-appears to be improving if there was cellulitis
-will provide 5 days of abx total
Hyponatremia
- Acute on Chronic / mildly decreased from prior.
- Fluid restriction for now and follow for improvement.
-resolved
ASCVD
Aortic Stenosis s/p AVR
- Stable. No chest pain, dyspnea, etc.
- Continue current CV med regimen including DAPT, etc.
Hypothyroidism
- Stable. Continue current T4 supplementation.
Benign Hypertension
- Stable. Continue losartan with holding parameters.
DVT Prophylaxis: ASA, brillinta -holding further dvt ppx with anemia
Code Status: Full
Anticipated Discharge: Within 24 hours
Subjective/Interval History
-
Date of Service: May 17, 2024
no acute events
Objective Data
-
Labs:
Laboratory Results
05/17/24
05:21
WBC 6.7
Hgb 8.7 L D
Hct 24.7 L
Plt Count 261
Sodium 135
Potassium 4.3
Chloride 101
Carbon Dioxide 23
BUN 14
Creatinine 0.7
Glucose 96
Calcium 8.7
Total Bilirubin 1.0
AST 22
ALT 15
Alkaline Phosphatase 95
Vital Signs:
Vital Signs
Temp Pulse Resp BP Pulse Ox
97.6 F 85 14 137/56 97
05/17/24 07:33 05/17/24 08:15 05/17/24 07:33 05/17/24 08:15 05/17/24 07:33
I&O
05/16/24 05/17/24 05/18/24
06:59 06:59 06:59
Intake Total 2080 / 2080 1270 / 1270
Output Total 575 / 575 1250 / 1250
Balance 1505 / 1505
Review of Systems
-
History Source: Patient
All other systems: Not reviewed unless documented
Data Reviewed
-
CT Scan: Image personally visualized and interpreted and Report Reviewed by me
Labs: Labs Reviewed by me
[2024-05-17 14:05] VITALS: BP 116/65; PULSE 82
[2024-05-17 15:16] VITALS: BP 128/50; PULSE 90; O2SAT 98
[2024-05-17 15:20] VITALS: BP 128/50
[2024-05-17] MEDS: ZETIA 10 MG PO (21:04)
[2024-05-17] MEDS: LIPITOR 10 MG PO (21:04)
[2024-05-17 23:10] VITALS: BP 118/52
[2024-05-18] MEDS: ANCEF 5 IV ×2 (02:36→09:50)
[2024-05-18 05:42] LABS: Hematocrit 23.7 % (39.0-52.0); Hemoglobin 8.1 g/dL (13.0-18.0); Mean Corp Hgb Conc. 34.2 g/dL (33.0-37.0); Mean Corpuscular Hgb 34.8 pg (27.0-31.0); Mean Corpuscular Volume 101.7 fL (80.0-94.0); Mean Platelet Volume 9.4 fL (7.4-10.4); Platelet Count 275 10^3/uL (130-400); Red Blood Cell Count 2.33 10^6/uL (4.70-6.10); White Blood Cell Count 6.6 10^3/uL (4.8-10.8)
[2024-05-18] MEDS: SYNTHROID 50 MCG PO (05:58)
[2024-05-18 06:07] LABS: ALT (SGPT) 14 U/L (0-50); AST (SGOT) 23 U/L (17-59); Albumin 3.3 g/dl (3.5-5.0); Alkaline Phosphatase 90 U/L (38-126); Blood Urea Nitrogen 12 mg/dl (9-20); Calcium 8.6 mg/dl (8.4-10.2); Carbon Dioxide 24 mmol/L (22-30); Chloride 102 mmol/L (98-107); Estimated Creatinine Clearance 73 ml/min; Glucose 94 mg/dl (70-99); Potassium 4.3 mmol/L (3.5-5.1); Sodium 135 mmol/L (135-145); Total Bilirubin 0.7 mg/dl (0.2-1.3); Total Protein 6.1 g/dl (6.3-8.2); eGFR > 60.00
[2024-05-18 07:00] VITALS: BP 135/63
[2024-05-18] MEDS: ASPIR LOW (ENTERIC COATED) 81 MG PO (07:28)
[2024-05-18] MEDS: BRILINTA 60 MG PO (07:28)
[2024-05-18] MEDS: COZAAR 50 MG PO (07:29)
--- NOTE | 2024-05-18 12:04 | CM ---
Addendum entered by Lena Monet 05/18/24 15:48:
Clinical faxed to [facility] # [phone]
Original Note:
Met with patient, and daughter at the bedside to discuss discharge plan. Per Attending, patient is stable for DC today
IMM benefit explained; signed form; declined copy
reported that patient will receive HOME PT with [facility] until able to leave home for Outpatient PT
requested to speak with Attending; contacted via [facility]; requested scripts for Outpatient PT
Per Attending, Family Physician will order follow up Labs
Plan: Discharge to home with Home PT; will transport
--- NOTE | 2024-05-18 12:12 | W.PN.UPDATE ---
Update Note
Progress Note Update
Patient sitting up comfortably in chair. He reports that his hip and knee pain are continuing to improve. Hgb this morning at 8.1 s/p 1 unit PRBC 2 days ago. Exam of the left hip and left knee essentially benign other than some mild swelling of the
left knee. RAKESH wrap compression in place LLE. CT of the LLE reveals left TKA to be without complication. ESR and CRP trending down. Will continue to monitor while inpatient. Concern for left knee PJI at this time extremely low. Continue to be
mindful of left hip THPs. PT/OT as able. Discharge once medically stable.
--- NOTE | 2024-05-18 12:20 | W.PN.HOSP.TC ---
Addendum entered and electronically signed by Gato Wayne MD 05/19/24 17:59:
[id number]
Original Note:
Today's Communication/Plan
-
complete abx course
ortho recs for deny wraps
cbc in 2-3 days with pcp
Assessment / Plan
Assessment / Plan
Physical Exam
General: Other (88y M in no acute distress.)
HEENT: Moist mucous membranes and PERRLA
Respiratory: Clear; No Wheezes, Rales or Rhonchi
Cardiac: S1/S2, Regular Rhythm and Murmur (II/ ALEX)
GI: Soft, Non Tender, Non Distended and Normal Bowel Sounds
Musculoskeletal: No Clubbing, No Cyanosis and Other (1-2+ pitting edema of the LLE. Ecchymosis around L hip incision / buttocks. Incision intact without bleeding / drainage. No fluctuance or surrounding erythema.)
Skin: edema note din LLE
Neuro: AO x 3, he followed commands
Psych: calm
Patient is an 88y M with PMH significant for ASCVD, HTN and recent L GRIFFIN who presents to ED complaining of L knee and hip pain.
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
-stable, no issues and feels better
-no further interventions from ortho
# Acute blood loss anemia v chronic anemia
Post hip replacement
iron labs, b12, folate, tsh wnl
-dc iv iron as not iron def on last lab values
-stable - monitor cbc in 2-3 days
-stool is brown
-transfuse 1 u 05/16
-no evidence of overt bleeding
# Presumed LLE Cellulitis.
-appears to be improving if there was cellulitis
-will provide 5 days of abx total
Hyponatremia
- Acute on Chronic / mildly decreased from prior.
- Fluid restriction for now and follow for improvement.
-resolved
ASCVD
Aortic Stenosis s/p AVR
- Stable. No chest pain, dyspnea, etc.
- Continue current CV med regimen including DAPT, etc.
Hypothyroidism
- Stable. Continue current T4 supplementation.
Benign Hypertension
- Stable. Continue losartan with holding parameters.
DVT Prophylaxis: ASA, brillinta
Code Status: Full
More than 30 minutes spent in discharge including
Final examination of the patient
Summarizing hospital stay
Instructions for continuing care to all relevant caregivers
Preparation of discharge records, prescriptions, and referral forms
Total time spent (35 in minutes):
Anticipated Discharge: Today
Subjective/Interval History
-
Date of Service: May 18, 2024
no acute events overnight
Objective Data
-
Labs:
Laboratory Results
05/18/24
05:11
WBC 6.6
Hgb 8.1 L
Hct 23.7 L
Plt Count 275
Sodium 135
Potassium 4.3
Chloride 102
Carbon Dioxide 24
BUN 12
Creatinine 0.6 L
Glucose 94
Calcium 8.6
Total Bilirubin 0.7
AST 23
ALT 14
Alkaline Phosphatase 90
Vital Signs:
Vital Signs
Temp Pulse Resp BP Pulse Ox
97.3 F 79 16 135/63 98
05/18/24 07:00 05/18/24 07:00 05/18/24 07:00 05/18/24 07:00 05/18/24 07:00
I&O
05/17/24 05/18/24 05/19/24
06:59 06:59 06:59
Intake Total 1270 / 1270 1140 / 1140
Output Total 1250 / 1250
Balance 20 / 20 1140 / 1140
Review of Systems
-
History Source: Patient
All other systems: Not reviewed unless documented
Data Reviewed
-
CT Scan: Image personally visualized and interpreted and Report Reviewed by me
Labs: Labs Reviewed by me
--- NOTE | 2024-05-18 12:39 | W.DS.TRANS ---
DC Summary - [employer]
-
Discharge Instructions:
Discharge Diagnosis/Procedures # Acute blood loss anemia v chronic anemia
# Presumed LLE Cellulitis.
Diet Low Fat,Low Cholesterol
Activity As tolerated
Blood Work cbc in 2-3 days with pcp
Instructions:
Stand-Alone Forms:
Changes to Home Medications: Yes
Discharge Medications:
DC Medications w/original date entered in [employer]
ezetimibe 10 mg-simvastatin 40 mg tablet (Vytorin) 1 tab PO HS High Cholesterol 04/15/24
levothyroxine 50 mcg tablet (Synthroid) 50 mcg PO DAILY@06 Thyroid 04/15/24
losartan 50 mg tablet (Cozaar) 50 mg PO DAILY Blood Pressure 04/15/24
ticagrelor 60 mg tablet (Brilinta) 60 mg PO BID Blood Clot Prevention/Tx 04/15/24
aspirin 81 mg tablet,delayed release 81 mg PO DAILY Blood Clot Prevention/Tx 05/16/24
cephalexin 500 mg capsule 500 mg PO QID 2 days #8 caps 05/18/24
Home Medication Changes
Pending Results: No
== END 2024-05-18 13:54 | disposition home or self-care (01) | DRG 812 ==
LOC: 3 WEST ACU 23:57
PROVIDERS: Internal Medicine; ADMITTING PHYSICIAN Hospitalist; ATTENDING PHYSICIAN Internal Medicine; EMERGENCY PHYSICIAN Emergency Medicine; FAMILY PHYSICIAN Student in an Organized Health Care Education/Training Program
PROC: 30233N1 Transfusion of Nonautologous Red Blood Cells into Peripheral Vein, Percutaneous Approach (ICD-10-PCS; 2024-05-16)
DX: D62 Acute posthemorrhagic anemia (principal); L03.116 Cellulitis of left lower limb; E87.1 Hypo-osmolality and hyponatremia; I10 Essential (primary) hypertension; I25.10 Atherosclerotic heart disease of native coronary artery without angina pectoris; E03.9 Hypothyroidism, unspecified; I35.0 Nonrheumatic aortic (valve) stenosis; G47.33 Obstructive sleep apnea (adult) (pediatric); D53.9 Nutritional anemia, unspecified; E78.00 Pure hypercholesterolemia, unspecified; M25.552 Pain in left hip; M25.562 Pain in left knee; Z95.2 Presence of prosthetic heart valve; Z95.5 Presence of coronary angioplasty implant and graft; Z95.1 Presence of aortocoronary bypass graft; Z96.642 Presence of left artificial hip joint; Z96.653 Presence of artificial knee joint, bilateral; Z79.82 Long term (current) use of aspirin; Z79.890 Hormone replacement therapy
CPT/HCPCS: 73502; 73560; 73700; 80048; 80053; 82728; 83540; 83550; 84443; 85025; 85027; 85652; 86140; 86850; 86900; 86901; 86920; 87040; 93971; 96374; 96375; 97116; 97162; 97166; 97530; 97535; 99285; J2916; P9016